=== PATIENT | female | born 1950 | race Caucasian/White ===

== ENCOUNTER 2020-11-16 10:33 | Outpatient (CLI) | payer OTHER | END 2020-11-16 18:00 | disposition home or self-care (01) | LOC: PPH VACUNA 10:33 | DX: Z23 Encounter for immunization (principal) ==

== ENCOUNTER 2020-12-07 11:27 | Outpatient (CLI) | payer OTHER | END 2020-12-07 15:00 | disposition home or self-care (01) | LOC: PPH VACUNA 11:27 | PROVIDERS: ATTEND Emergency Medicine Pediatric Emergency Medicine | DX: Z23 Encounter for immunization (principal) ==

== ENCOUNTER → 2023-01-22 13:16 | Outpatient (CLI) | payer OTHER | END | disposition home or self-care (01) | LOC: LAB 13:16 | DX: H16.142 Punctate keratitis, left eye (principal) ==